=== PATIENT | male | born 1985 | race Two or more races ===

== ENCOUNTER 2017-01-17 03:22 | Emergency (ER) | payer SELFPAY ==
[~2017-01-17] VITALS: Ht 162.6 cm; Wt 70.1 kg
[2017-01-17 03:28] VITALS: BP 144/86
[2017-01-17] MEDS ORDERED: ONDANSETRON ODT 4 MG ONE (03:54)
[2017-01-17] MEDS ORDERED: LORazepam 1MG TABLET ONE (03:54)
[2017-01-17 03:58] LABS: DAU SCREEN DISCLAIMER
[2017-01-17] MEDS ORDERED: MORPHINE SULFATE 4 MG/ML, 1ML IVPush PRN (04:00)
[2017-01-17] MEDS ORDERED: LORazepam 1MG TABLET PO ONE (04:00)
[2017-01-17] MEDS ORDERED: ONDANSETRON 2MG/ML, 2ML IVPush ONE (04:00)
[2017-01-17] MEDS ORDERED: SODIUM CHLORIDE FLUSH 10ML SYR IVF ONE (04:00)
[2017-01-17] MEDS ORDERED: SODIUM CHLORIDE 0.9% 1,000ML IVBOLUS ONE (04:00)
[2017-01-17] MEDS ORDERED: ONDANSETRON ODT 4 MG PO ONE (04:00)
[2017-01-17 04:13] LABS: ASPARTATE AMINO TRANSFERASE 31 U/L (15-37); BLOOD UREA NITROGEN 17 mg/dL (7-18)
== END 2017-01-17 04:47 | disposition home or self-care (01) ==
LOC: ED 04:38
DX: R10.13 Epigastric pain (principal); F41.1 Generalized anxiety disorder; D72.829 Elevated white blood cell count, unspecified; F15.10 Other stimulant abuse, uncomplicated; Z72.9 Problem related to lifestyle, unspecified
CPT/HCPCS: 36415; 80053; 80307; 81001; 83690; 85025; 87086; 87147; 99284; Q0162

== ENCOUNTER 2018-12-11 10:20 | Emergency (ER) | payer SELFPAY ==
[~2018-12-11] VITALS: Ht 175.3 cm; Wt 78.2 kg
[2018-12-11 11:47] LABS: MICROSCOPIC NOT IND
[2018-12-11 11:49] LABS: CULTURE INDICATED? NO
[2018-12-11 12:08] LABS: BASOPHILS # (AUTO) 0.03 x10^3/uL (0-0.1); BASOPHILS % (AUTO) 0 % (0-1); EOSINOPHILS # (AUTO) 0.08 x10^3/uL (0-0.4); EOSINOPHILS % (AUTO) 1 % (1-7); LYMPHOCYTES # (AUTO) 2.31 x10^3/uL (1-3.4); LYMPHOCYTES % (AUTO) 30 % (22-44); MD NO; MEAN CORPUSCULAR HEMOGLOBIN 30.7 pg (27.5-34.5); MEAN CORPUSCULAR HGB CONC 34.6 g/dL (33.2-36.2); MEAN CORPUSCULAR VOLUME 88.8 fL (81-97); MEAN PLATELET VOLUME 8.7 fL (7.4-10.4); MONOCYTES # (AUTO) 0.37 x10^3/uL (0.2-0.8); MONOCYTES % (AUTO) 5 % (2-9); NEUTROPHILS # (AUTO) 4.85 x10^3/uL (1.8-6.8); NEUTROPHILS % (AUTO) 63 % (42-75); PLATELET COUNT 263 x10^3/uL (130-400); RED BLOOD COUNT 5.29 x10^6/uL (4.38-5.82); RED CELL DISTRIBUTION WIDTH 12.4 % (9.4-14.8)
[2018-12-11 12:18] LABS: ALANINE AMINOTRANSFERASE 58 U/L (12-78); ANION GAP 5 mmol/L (5-15); CHLORIDE 107 mmol/L (98-107)
[2018-12-11 12:20] LABS: ALKALINE PHOSPHATASE 85 U/L (45-117); BILIRUBIN,TOTAL 0.6 mg/dL (0.2-1.0); TOTAL PROTEIN 7.8 g/dL (6.4-8.2)
== END 2018-12-11 12:36 | disposition home or self-care (01) ==
LOC: EDBD 10:20 → MERGE 12:27 → ED 12:27
DX: K29.00 Acute gastritis without bleeding (principal)
CPT/HCPCS: 36415; 71046; 80053; 81003; 83690; 85025; 86677; 99284

== ENCOUNTER 2019-12-09 15:21 | Emergency (ER) | payer OTHER ==
[~2019-12-09] VITALS: Ht 172.7 cm; Wt 76.4 kg
[2019-12-09 15:49] VITALS: BP 146/97
--- NOTE | 2019-12-09 16:30 | NUR ---
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
[2019-12-09] MEDS ORDERED: DIPH,PERTUSS(ACELL),TET VAC/PF 0.5 ML IM-VACC ONE ×2 (16:52→17:30)
--- NOTE | 2019-12-09 16:57 | NUR ---
BREAK RN: PT GIVEN TDAP INFO SHEET. MEDICATED PER EMAR. PT RESTING ON GURSTALEY, AWAITING DC PAPERWORK.
--- NOTE | 2019-12-09 17:17 | NUR ---
Patient given discharge instructions and they have confirmed that they understand the instructions. Patient ambulatory with steady gait.
== END 2019-12-09 17:18 | disposition home or self-care (01) ==
LOC: ED 17:05
DX: S90.475A Other superficial bite of left lesser toe(s), initial encounter (principal); W53.11XA Bitten by rat, initial encounter; Y93.89 Activity, other specified; Y92.098 Other place in other non-institutional residence as the place of occurrence of the external cause; Y99.8 Other external cause status
CPT/HCPCS: 90471; 90715; 99283

== ENCOUNTER 2020-12-09 12:55 | Day surgery (SDC) | payer OTHER ==
[~2020-12-09] VITALS: Ht 167.6 cm; Wt 73.9 kg
[2020-12-09] MEDS ORDERED: KETOROLAC 30 MG/1 ML ONE (13:43)
[2020-12-09] MEDS ORDERED: MORPHINE SULFATE 4 MG/ML, 1ML ONE (13:43)
[2020-12-09] MEDS ORDERED: ONDANSETRON 2MG/ML, 2ML ONE (13:45)
--- NOTE | 2020-12-09 13:58 | NUR ---
THIS IS A 35 YR OLD MALE WITH NO PREVIOUS HX. PT STATES AT 7 AM THIS AM HE BEGAN TO HAVE RIGHT SIDED UPPER QUADRANT ABD ANA PAULA. PT IS TENDER IN ALL RIGHT QUADRANTS TO PALPATION. LAST BM THIS AM NORMAL. PT DESCRIBES INCREASE IN URINATION. STATES HIS LUNGS HURT AND MAKE THE PAIN WORSE ON INSPIRATION. IV ACCESS OBTAINED WITH LABS DRAWN, PT MEDICATED PER ORDER AND AT THIS TIME PT TO CT
[2020-12-09] MEDS ORDERED: ONDANSETRON 2MG/ML, 2ML IVPush ONE (14:00)
[2020-12-09] MEDS ORDERED: SODIUM CHLORIDE 0.9% 1,000ML IV ONE (14:00)
[2020-12-09] MEDS ORDERED: SODIUM CHLORIDE FLUSH 10ML SYR IVF ONE (14:00)
[2020-12-09] MEDS ORDERED: KETOROLAC 30 MG/1 ML IVPush ONE (14:00)
[2020-12-09] MEDS ORDERED: MORPHINE SULFATE 4 MG/ML, 1ML IVPush PRN (14:00)
[2020-12-09 14:04] LABS: BASOPHILS % (AUTO) 0 % (0-1); EOSINOPHILS % (AUTO) 0 % (1-7); LYMPHOCYTES % (AUTO) 8 % (22-44); MEAN CORPUSCULAR HGB CONC 33.9 g/dL (33.2-36.2); MONOCYTES % (AUTO) 2 % (2-9); NEUTROPHILS % (AUTO) 90 % (42-75); PLATELET COUNT 348 x10^3/uL (130-400); RED BLOOD COUNT 5.47 x10^6/uL (4.38-5.82); RED CELL DISTRIBUTION WIDTH 12.6 % (9.4-14.8)
--- NOTE | 2020-12-09 14:12 | NUR ---
PT BACK FROM CT. PT STRUGGLES TO PLACE A NUMERICAL NUMBER TO PAIN. PT RESTING COMFORTABLE BODY SHAKING HAS STOPPED AT THIS TIME. PT IS ABLE TO HAVE FULL SENTENCE CONVERSATIONS.
[2020-12-09 14:14] LABS: ALBUMIN 4.1 g/dL (3.4-5.0); ANION GAP 11 mmol/L (5-15); CALCIUM 8.9 mg/dL (8.5-10.1); CHLORIDE 96 mmol/L (98-107)
[2020-12-09 14:18] LABS: ALANINE AMINOTRANSFERASE 42 U/L (12-78); ALKALINE PHOSPHATASE 108 U/L (45-117); BILIRUBIN,TOTAL 0.2 mg/dL (0.2-1.0); CREATININE 1.01 mg/dL (0.7-1.3); TOTAL PROTEIN 7.9 g/dL (6.4-8.2)
[2020-12-09 14:26] LABS: MD SCAN
[2020-12-09 15:00] LABS: MICROSCOPIC NOT IND
[2020-12-09 15:17] VITALS: BP 154/99
[2020-12-09] MEDS ORDERED: METRONIDAZOLE PMX 500MG/100ML 100 ML ONE (15:21)
[2020-12-09] MEDS ORDERED: CEFTRIAXONE PMX 1GM/50ML 50 ML ONE (15:21)
[2020-12-09] MEDS ORDERED: CEFTRIAXONE PMX 1GM/50ML 50 ML IV ONE (15:30)
[2020-12-09] MEDS ORDERED: METRONIDAZOLE PMX 500MG/100ML 100 ML IV ONE (15:30)
[2020-12-09] MEDS ORDERED: FENTANYL PF 250 MCG/5ML ONE (16:01)
[2020-12-09] MEDS ORDERED: MIDAZOLAM 1 MG/ML, 2ML ONE (16:01)
[2020-12-09] MEDS ORDERED: BUPIVACAINE/PF 0.5% ONE (16:36)
[2020-12-09] MEDS ORDERED: ROCURONIUM 10MG/ML,5ML ONE (16:57)
[2020-12-09] MEDS ORDERED: DEXAMETHASONE 4 MG/ML, 5ML ONE (16:57)
[2020-12-09] MEDS ORDERED: PROPOFOL 10 MG/ML, 20ML ONE (16:57)
[2020-12-09] MEDS ORDERED: CEFOTETAN 1 GM ONE (17:01)
[2020-12-09] MEDS ORDERED: DIPHENHYDRAMINE 50 MG/ML, 1ML IVPush PRN ×2 (17:30)
[2020-12-09] MEDS ORDERED: PROMETHAZINE 12.5 MG SUPP PR PRN (17:30)
[2020-12-09] MEDS ORDERED: ACETAMINOPHEN 325 MG TABLET PO PRN (17:30)
[2020-12-09] MEDS ORDERED: PROMETHAZINE 25 MG/ML, 1ML IVPush PRN (17:30)
[2020-12-09] MEDS ORDERED: MIDAZOLAM 1 MG/ML, 2ML IV PRN (17:30)
[2020-12-09] MEDS ORDERED: ONDANSETRON 2MG/ML, 2ML IVPush PRN (17:30)
[2020-12-09] MEDS ORDERED: DIAZEPAM 5 MG/ML, 2ML IVPush PRN (17:30)
[2020-12-09] MEDS ORDERED: LABETALOL 5MG/ML, 20ML IV PRN (17:30)
[2020-12-09] MEDS ORDERED: FENTANYL PF 100 MCG/2ML IV PRN (17:30)
[2020-12-09] MEDS ORDERED: ALBUTEROL SULFATE 2.5 MG/3 ML NPPB PRN (17:30)
[2020-12-09] MEDS ORDERED: hydrALAzine 20 MG/ML, 1ML IV PRN (17:30)
[2020-12-09] MEDS ORDERED: MEPERIDINE/PF 25MG/0.5ML IVPush PRN (17:30)
[2020-12-09] MEDS ORDERED: HYDROmorphone 1 MG/ML, 1ML INJ IVPush PRN (17:30)
[2020-12-09] MEDS ORDERED: EPHEDRINE 50 MG/ML, 1ML IVPush PRN (17:30)
[2020-12-09] MEDS ORDERED: SUGAMMADEX 200 MG/2 ML IVPush ONE (17:58)
[2020-12-09] MEDS ORDERED: OXYC1TAB14 PO (18:30)
[2020-12-09] MEDS ORDERED: OXYcodone 5 MG/5 ML ORAL.SOL UDC ONE ×2 (18:50→19:03)
[2020-12-09] MEDS: OXYcodone 5 MG/5 ML ORAL.SOL UDC PO PRN ×2 (18:52→19:03)
[2020-12-09] MEDS ORDERED: FENTANYL PF 100 MCG/2ML ONE (19:02)
[2020-12-09] MEDS ORDERED: HYDROmorphone 1 MG/ML, 1ML INJ ONE (19:03)
[2020-12-09] MEDS ORDERED: LABETALOL 5MG/ML, 20ML ONE (19:48)
== END 2020-12-09 21:30 | disposition home or self-care (01) ==
LOC: EDSTATUS 16:00 → OR 16:07 → SDC 16:09 → UNDOADMOB 20:44 → EDIP 20:44 → SDC 21:30 → OR 21:40
PROVIDERS: ATTEND Emergency Medicine
DX: K80.12 Calculus of gallbladder with acute and chronic cholecystitis without obstruction (principal); Z20.822 Contact with and (suspected) exposure to COVID-19; Z79.899 Other long term (current) drug therapy; Z72.89 Other problems related to lifestyle; Z98.890 Other specified postprocedural states
CPT/HCPCS: 36415; 47562; 74176; 80053; 81003; 83690; 85025; 87635; 88304; 96361; 96365; 96375; 99285; J0696; J1100; J1170; J1885; J2250; J2270; J2405; J2704; J3010; J7030